=== PATIENT | female | born 1990 | race Caucasian/White ===

== ENCOUNTER 2022-03-07 09:59 | Outpatient (CLI) | payer BC ==
[2022-03-07] VITALS (18 sets, daily range): BP systolic 86–115; BP diastolic 44–69
== END 2022-03-07 23:59 | disposition home or self-care (01) ==
LOC: RAD 09:59
PROVIDERS: ATTEND Internal Medicine Interventional Cardiology
DX: R55 Syncope and collapse (principal)
CPT/HCPCS: 93660